=== PATIENT | male | born 1965 | race Caucasian/White ===

== ENCOUNTER 2018-12-23 11:34 | Emergency (ER) | payer OTHER ==
[2018-12-23 11:58] VITALS: BP 148/94
--- NOTE | 2018-12-23 12:18 | ED Physician Documentation ---
PD HPI UPPER EXT INJURY - Stated complaint Stated Complaint: LT FINGER LAC - Chief complaint Chief Complaint: Trauma Ext - History obtained from History obtained from: Patient - History of Present Illness Location: Left, Finger (index) Type of injury: Laceration Where injury occurred: Home Timing - onset: Last night Timing - duration: Hours Timing - details: Abrupt onset, Still present Improved by: Rest, Dressing Worsened by: Moving Contributing factors: No: Anticoagulated Similar symptoms before: Has not had sx before Recently seen: Not recently seen - Additonal information Additional information: 53-year-old male is visiting the [place] and last night he was in the shower and cut his finger on a safety razor. He has had oozing of blood from the area all night long he is not been able to get the bleeding to be stopped completely. He is come now to the emergency department for evaluation. He also complains of pain in a left upper premolar that is been present for 4 days. He has had dental abscess previously he does have a dentist that he can visit. Review of Systems Constitutional: denies: Fever Eyes: denies: Decreased vision Ears: denies: Ear pain Nose: denies: Rhinorrhea / runny nose, Congestion Throat: reports: Dental pain / toothache Respiratory: denies: Cough GI: denies: Vomiting Skin: reports: Laceration (s) PD PAST MEDICAL HISTORY - Present Medications Home Medications: Ambulatory Orders Medication Instructions Recorded Confirmed Amoxicillin 875 mg PO BID #14 tablet 12/23/18 - Allergies Allergies/Adverse Reactions: Allergies Allergy/AdvReac Type Severity Reaction Status Date / Time No Known Drug Allergies Allergy Verified 12/23/18 11:58 PD ED PE NORMAL - Vitals Vital signs reviewed: Yes - General General: Alert and oriented X 3, No acute distress, Well developed/nourished - HEENT HEENT: Atraumatic, PERRL, EOMI, Other (There is inflamation to the gingival mucousa on the left upper pre-molar. ) - Neck Neck: Supple, no meningeal sign, No bony TTP - Respiratory Respiratory: No respiratory distress - Derm Derm: Normal color, Warm and dry, No rash - Extremities Extremities: No deformity, No edema, Other (There is a patch of skin 1cm X 1cm over the left index finger tip that is oozing blood. ) - Neuro Neuro: Alert and oriented X 3, wharf hand 2-12 intact, No motor deficit, No sensory deficit, Normal speech Eye Opening: Spontaneous Motor: Obeys Commands Verbal: Oriented GCS Score: 15 - Psych Psych: Normal mood, Normal affect Results - Vitals Vitals: Vital Signs - 24 hr 12/23/18 11:54 Temperature 35.9 C L Heart Rate 58 L Respiratory 16 Rate Blood Pressure 148/94 H O2 Saturation 99 Oxygen O2 Source Room air PD MEDICAL DECISION MAKING - ED course Complexity details: reviewed results, re-evaluated patient, considered differential, d/w patient, d/w family ED course: 53-year-old male with a scab of skin off of the index finger and a dental abscess. The wound is dressed with Gelfoam and tube gauze and the patient is placed on amoxicillin for the dental abscess Departure - Departure Disposition: 01 Home, Self Care Clinical Impression: Pain, dental Avulsion of skin of finger Qualifiers: Encounter type: initial encounter Qualified Code(s): S61.209A - Unspecified open wound of unspecified finger without damage to nail, initial encounter Condition: Stable Instructions: ED Abscess Dental, ED Avulsion Dermal Follow-Up: Your, doctor [Other] Prescriptions: Amoxicillin 875 mg PO BID #14 tablet
== END 2018-12-23 12:49 | disposition home or self-care (01) ==
LOC: ED 11:34
DX: S61.211A Laceration without foreign body of left index finger without damage to nail, initial encounter (principal); W45.8XXA Other foreign body or object entering through skin, initial encounter; Y93.E1 Activity, personal bathing and showering; K04.7 Periapical abscess without sinus
CPT/HCPCS: 99283; 99284